=== PATIENT | male | born 1995 | race Asian ===

== ENCOUNTER → 2016-12-05 | Outpatient (CLI) | payer OTHER ==
[~2016-12-05] MED LIST: GADAVIST IV PRN; IBUP-1050 PO
--- NOTE | 2016-12-05 17:56 | DIAGNOSTIC IMAGING REPORT ---
MRI OF THE BRAIN WITHOUT AND WITH IV CONTRAST CLINICAL HISTORY: Headache and blurry vision COMPARISON STUDY: Noncontrast head CT dated 11/11/2016 TECHNIQUE: MRI of the brain was performed from the vertex to the skull base utilizing various T1 and T2 weighted sequences. Following the IV administration of 8 mL of Gadavist contrast, additional enhanced images were obtained. FINDINGS: Sagittal T1, axial diffusion, proton density and T2 weighted axial, coronal FLAIR, and pre and post axial T1-weighted images were acquired. These were supplemented with post gadolinium coronal T1 weighted images. No intra or extra-axial mass lesions are visualized. Axial diffusion-weighted images reveal no evidence of acute or subacute infarction. There is no evidence of ventricular dilatation. Proton density T2-weighted and FLAIR images reveal no significant intraparenchymal signal abnormalities. There are no abnormal flow voids. There is no evidence of pathologic enhancement. IMPRESSION: Normal study. Electronically signed by: Nabil Lennon M.D. 12/05/2016 5:55 PM Dictated Date/Time: 12/05/2016 5:53 PM
== END | disposition home or self-care (01) ==
LOC: C.MRI 16:53
PROVIDERS: ATTEND Psychiatry & Neurology Neurology
DX: H53.8 Other visual disturbances (principal); R51 Headache

== ENCOUNTER 2017-07-12 19:53 | Emergency (ER) | payer OTHER ==
[~2017-07-12] VITALS: Ht 165.1 cm; Wt 80.6 kg
[~2017-07-12 19:53] MED LIST changes: -GADAVIST IV PRN
[2017-07-12 19:56] VITALS: TEMP 36.8; Ht 165.1 cm; Wt 80.6 kg
[2017-07-12] MEDS ORDERED: LIDOCAINE 4% W/AFRIN NASAL SOLN 4ML EXT STA (20:16)
--- NOTE | 2017-07-12 21:23 | EMERGENCY ROOM VISIT NOTE ---
History Report prepared by Josselineibaurelia: Sheri Walls Under the Supervision of: Dr. Dell Linda M.D. First contact with patient: 20:03 Chief Complaint: FOOD BOLUS Stated Complaint: FOOD STUCK IN THROAT History of Present Illness The patient is a 21 year old male who presents to the Emergency Room with complaints of a food bolus. He reports he was eating rice and potatoes with cilantro this evening and now feels like something small is stuck in his throat , like a piece of cilantro. He rates his discomfort as a 6/10 in severity. Afterwards, he drank a bottle of water, but states it provided no relief. He is still able to swallow normally. The patient denies any itching or tightness in his throat. Pt also denies LOC, headache, fevers, chills, diaphoresis, visual changes, neck pain, chest pain, breathing difficulties, nausea, vomiting, abdominal pain, numbness, weakness, lymphadenopathy, rash, or other complaints. 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 A total of 6 systems were reviewed and were otherwise negative. Past Medical & Surgical Medical Problems: (1) No pertinent past medical history Family History Patient reports no known family medical history. 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 Oropharynx unremarkable. EYES: Normal conjunctiva. Sclera non-icteric. NECK: Supple. No nuchal rigidity. FROM. No JVD. RESPIRATORY: Clear to auscultation. CARDIAC: Regular rate, normal rhythm. Extremities warm and well perfused. Pulses equal. MUSCULOSKELETAL: Chest examination reveals no tenderness. The back is symmetrical on inspection without obvious abnormality. There is no CVA tenderness to palpation. No joint edema. NEURO: Normal sensorium. No sensory or motor deficits noted. SKIN: No rash or jaundice noted. Medical Decision & Procedures Procedure Nasopharyngoscopy: Risks and benefits were explained with the usual customary discussion. The patient's right naris was anesthetized with topical lidocaine and Afrin. The OIL AND G[employer] LEASE [employer]MPER scope was inserted in the standard fashion and the nasopharynx and vallecula were without difficulty. Epiglottis normal. No edema noted. Mucosa unremarkable. There is a piece of that stool matter on the right side of the posterior oropharynx from the tongue extending inferiorly to the opening of the esophagus. This is not visible through the mouth. The OIL [employer] G[employer]ER scope was used to maneuver the distal matter medially and after several attempts the patient was able to clear this with swallowing. No complications. Patient tolerated the procedure well. ED Course 2011: The patient was evaluated in room B2. A complete history and physical exam was performed. 2016: Lidocaine 4 ml EXT. 2135: I reevaluated the patient. He is feeling much better. I discussed his discharge instructions and he verbalized complete understanding and agreement. Medical Decision Patient was evaluated. Differential includes foreign body, globus sensation, edema, as well as others. He noted a foreign body sensation and believes he has a piece of cilantro stuck in his oropharynx. The patient had an OIL [employer] G[employer] LE[employer]ER scope performed and this did reveal the vegetable matter. This was removed as noted above. The patient was observed. He did very well. He had no stridor or airway edema. He was swallowing normally. By the evaluation outlined above other emergent etiologies such as those listed in the differential, as well as others, were deemed relatively unlikely. The patient was educated about the findings as listed above. All questions were answered and the patient was pleased with the treatment. Return instructions were outlined and the patient was discharged in stable condition. The patient was referred to his PCP for follow-up for a recheck of the current condition. Medication Reconcilliation Current Medication List: was personally reviewed by me Blood Pressure Screening Patient's blood pressure: Normal blood pressure Blood pressure disposition: Did not require urgent referral Impression Primary Impression: Foreign body in nasopharynx Scribe Attestation The scribe's documentation has been prepared under my direction and personally reviewed by me in its entirety. I confirm that the note above accurately reflects all work, treatment, procedures, and medical decision making performed by me. Departure Information Dispostion Home / Self-Care Prescriptions No Active Prescriptions or Reported Meds Referrals No Doctor, Assigned (PCP) Patient Instructions My [facility] Additional Instructions Rest. Drink plenty of fluids. Follow-up with [facility] next week as needed. Return to the emergency room for any severe throat pain, difficulty breathing, difficulty swallowing, vomiting or as needed.
[2017-07-12 21:41] VITALS: BP 121/79; PULSE 74; O2SAT 97
== END 2017-07-12 21:43 | disposition home or self-care (01) ==
LOC: C.EDB 19:55
DX: T17.208A Unspecified foreign body in pharynx causing other injury, initial encounter (principal); X58.XXXA Exposure to other specified factors, initial encounter

== ENCOUNTER 2018-01-15 20:05 | Emergency (ER) | payer OTHER ==
[~2018-01-15] VITALS: Ht 165.1 cm; Wt 81.7 kg
[2018-01-15 20:07] VITALS: Ht 165.1 cm; Wt 81.7 kg
[2018-01-15] MEDS ORDERED: ACETAMINOPHEN 500 MG TAB PO STA (20:17)
[2018-01-15] MEDS ORDERED: SODIUM CHLORIDE 0.9% 1000ML 1,000 ML IV STA (20:17)
[2018-01-15] MEDS ORDERED: SODIUM CHLORIDE 0.9% 1000ML 1,000 ML IV SCH (20:30)
[2018-01-15 20:54] LABS: BASO % 0.2 %; BASO ABS # 0.02 K/uL (0-0.2); EOS % 0.4 %; EOS ABS # 0.03 K/uL (0-0.5); HEMATOCRIT 40.1 % (42-52); HEMOGLOBIN 13.8 g/dL (14.0-18.0); IG# 0.01 K/uL (0.00-0.02); LYMPH % 16.9 %; MEAN CELL VOLUME 83.2 fL (80-100); MEAN CORPUSCULAR HEMOGLOBIN 28.6 pg (25-34); MEAN CORPUSCULAR HGB CONC 34.4 g/dl (32-36); MEAN PLATELET VOLUME 10.4 fL (7.4-10.4); MONO % 7.9 %; MONO ABS # 0.65 K/uL (0.11-0.59); NEUT % 74.5 %; NEUT ABS # 6.17 K/uL (1.4-6.5); PLATELET COUNT 163 K/uL (130-400); RED CELL DISTRIBUTION WIDTH CV 12.6 % (11.5-14.5); RED CELL DISTRIBUTION WIDTH SD 38.1 fL (36.4-46.3); WHITE BLOOD COUNT 8.28 K/uL (4.8-10.8)
--- NOTE | 2018-01-15 20:58 | EMERGENCY ROOM VISIT NOTE ---
History First contact with patient: 20:12 Chief Complaint: COUGH Stated Complaint: COUGH,FEVER,BODYACHES,CONGESTION Nursing Triage Summary: pt reports cough , congestion and fever X 5 days + NV started today last dose Ibuprofen at 1830 History of Present Illness The patient is a 22 year old male who presents to the Emergency Room with complaints of cough and fevers. His main symptoms at this time are nasal congestion and sinus pressure. Reports some pressure sensation on both sides of his ears. Patient also notes that he has some sore throat on the left side. He is having some discomfort with swallowing. States he has had some nasal discharge, with slight intermittent bleeding. He has also been coughing. Most of the time it is dry. Sometimes he has some small amounts of yellow sputum mixed with blood but he thinks that this probably coming from the nose. He denies having shortness of breath or wheezing. He does feel slight amount of chest pressure. He states that he feels some palpitations but also states that he is little bit nervous being here in the emergency room. Patient's appetite has been down as is been in p.o. intake. His girlfriend states that he has not had much to eat all day today. Today states that he is nauseous but thinks he be able to keep fluids down. Patient states that his symptoms started 4 days ago. His fevers have been continuously 100-101. He has been trying Tylenol Motrin which intermittently helps. Patient states that he has not any other medical conditions. Is never had any surgeries. He does not take any regular medications. He is a lifelong non- smoker. The patient did travel to [facility] 4 months ago but has not had no recent travel since. Review of Systems A 10 point review of systems was negative unless stated above. Past Medical/Surgical History Medical Problems: (1) No pertinent past medical history Family History Patient reports no known family medical history. 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 Current/Historical Medications Scheduled Amoxicillin (Amoxicillin), 1 TAB PO BID Scheduled PRN Acetaminophen (Tylenol), 1,000 MG PO Q6 PRN for Pain Dextromethorphan-Phenylephrine (Theraflu Severe Cold & Co), 1 TAB BID PRN for cold symptoms Ibuprofen (Advil), 400-600 MG PO Q6H PRN for Pain or Fever Allergies NKA Physical Exam Vital Signs Date Time Temp Pulse Resp B/P (MAP) Pulse Ox O2 Delivery O2 Flow Rate FiO2 01/15/18 21:41 37.6 102 18 120/71 99 Room Air 01/15/18 20:41 115 01/15/18 20:32 Room Air 01/15/18 20:07 38.0 133 18 139/82 97 Room Air Pain Rating (0-10): 0 Physical Exam Constitutional: Vital signs as above were reviewed. General Exam: Diaphoretic, no acute distress Eyes: Pupils equal, round, and reactive to light. Extraocular muscles are intact. No proptosis. No photophobia. ENT: Mucous membranes are moist. Oropharynx is erythematous, no petechiae Nasal turbinates are boggy and erythematous There is no evidence of cervical lymphadenopathy Both tympanic membranes are clear with good light reflex. Cardiovascular: Heart with a regular rate and rhythm. Pulses are palpable and symmetric in all 4 extremities. No pedal edema appreciated. Respiratory: Lungs clear to auscultation bilaterally. No wheezes, rales, or rhonchi appreciated. No accessory muscle use. No retractions. No increased work of breathing. GI: Abdomen soft, nontender, nondistended. Normal active bowel sounds. No abdominal hernias appreciated. No rebound. No guarding. Musculoskeletal: No midline cervical or vertebral tenderness. No gross deformities. No bony tenderness. No calf swelling or tenderness. Integumentary: Warm, dry, no rashes appreciated. Neurological: Patient awake, alert, and oriented x 3. Cranial nerves two through 12 grossly intact. Lymph: No cervical lymphadenopathy appreciated. No posterior chain lymphadenopathy. Medical Decision & Procedures ER Provider Diagnostic Interpretation: CHEST ONE VIEW PORTABLE HISTORY: 22 years-old Male Evaluate Fever/Sepsis acute fever with sepsis COMPARISON: None available TECHNIQUE: Portable AP view of the chest FINDINGS: Cardiomediastinal and hilar silhouettes are within normal limits. No pneumothorax, pleural effusion, focal airspace consolidation or overt pulmonary edema. The bones of the chest appear grossly intact. IMPRESSION: No acute process. The above report was generated using voice recognition software. It may contain grammatical, syntax or spelling errors. Electronically signed by: Fredi De La Rosa M.D. 01/15/2018 9:00 PM Dictated Date/Time: 01/15/2018 8:59 PM The status of this report is Signed. Draft = Not yet reviewed or approved by Radiologist. Signed = Reviewed and approved by Radiologist. Laboratory Results 01/15/18 20:40 Red Blood Count 4.82, Mean Corpuscular Volume 83.2, Mean Corpuscular Hemoglobin 28.6, Mean Corpuscular Hemoglobin Concent 34.4, Mean Platelet Volume 10.4, Neutrophils (%) (Auto) 74.5, Lymphocytes (%) (Auto) 16.9, Monocytes (%) (Auto) 7.9, Eosinophils (%) (Auto) 0.4, Basophils (%) (Auto) 0.2, Neutrophils # (Auto) 6.17, Lymphocytes # (Auto) 1.40, Monocytes # (Auto) 0.65, Eosinophils # (Auto) 0.03, Basophils # (Auto) 0.02 01/15/18 20:40 Test 01/15/18 20:30 01/15/18 20:40 01/15/18 21:37 Influenza Type A Antigen Neg for Influ A (NEG) Influenza Type B Antigen Neg for Influ B (NEG) White Blood Count 8.28 K/uL (4.8-10.8) Red Blood Count 4.82 M/uL (4.7-6.1) Hemoglobin 13.8 g/dL (14.0-18.0) Hematocrit 40.1 % (42-52) Mean Corpuscular Volume 83.2 fL (80-100) Mean Corpuscular Hemoglobin 28.6 pg (25-34) Mean Corpuscular Hemoglobin Concent 34.4 g/dl (32-36) Platelet Count 163 K/uL (130-400) Mean Platelet Volume 10.4 fL (7.4-10.4) Neutrophils (%) (Auto) 74.5 % Lymphocytes (%) (Auto) 16.9 % Monocytes (%) (Auto) 7.9 % Eosinophils (%) (Auto) 0.4 % Basophils (%) (Auto) 0.2 % Neutrophils # (Auto) 6.17 K/uL (1.4-6.5) Lymphocytes # (Auto) 1.40 K/uL (1.2-3.4) Monocytes # (Auto) 0.65 K/uL (0.11-0.59) Eosinophils # (Auto) 0.03 K/uL (0-0.5) Basophils # (Auto) 0.02 K/uL (0-0.2) RDW Standard Deviation 38.1 fL (36.4-46.3) RDW Coefficient of Variation 12.6 % (11.5-14.5) Immature Granulocyte % (Auto) 0.1 % Immature Granulocyte # (Auto) 0.01 K/uL (0.00-0.02) Anion Gap 7.0 mmol/L (3-11) Est Creatinine Clear Calc Drug Dose 100.9 ml/min Estimated GFR () 106.0 Estimated GFR (Non- 91.4 BUN/Creatinine Ratio 7.4 (10-20) Calcium Level 8.3 mg/dl (8.5-10.1) Total Creatine Kinase 133 U/L (39-308) Creatine Kinase MB 0.6 ng/ml (0.5-3.6) Creatine Kinase MB Ratio 0.5 (0-3.0) Troponin I < 0.015 ng/ml (0-0.045) Lipase 139 U/L (73-393) Medications Administered Medications (Trade) Dose Ordered Sig/Rubi Route Start Time Stop Time Status Last Admin Dose Admin Sodium Chloride 1,000 ml @ 999 mls/hr Q1H1M STAT IV 01/15/18 20:17 01/15/18 21:17 DC 01/15/18 20:37 999 MLS/HR Acetaminophen (Tylenol Tab) 1,000 mg NOW STAT PO 01/15/18 20:17 01/15/18 20:21 DC 01/15/18 20:37 1,000 MG Potassium Chloride (Klor-Con M10) 40 meq STK-MED ONCE .ROUTE 01/15/18 21:27 01/15/18 21:28 DC 01/15/18 21:32 40 MEQ ED Course 20:30 - The patient was seen and assessed. A full history and physical exam was performed 20:45 - The case was discussed with Dr. Washington, who will see the patients separately 21:30 - Chest x-ray reviewed. Labs reviewed K3.1: 40 any cues of potassium chloride p.o. given to the patient 21:45 - Results were discussed with the patient; recommend treatment for sinusitis at this time and discharged home with close PCP follow-up The patient is in agreement with this plan 21:50 - Discharge completed. Patient was discharged in stable condition Medical Decision Patient presents with fever and cough for the past 4 days. He notes that he has been febrile. Differential includes pharyngitis, influenza, sinusitis, mononucleosis, viral URI with cough. CBC was obtained which was normal. The patient was febrile on arrival. He was given Tylenol. Is also tachycardic on arrival which responded well to IV fluids. Patient states he is feeling much better after IV fluids. Chest x-ray done to rule out a pneumonia which was fortunately normal. An EKG was done showing a sinus tachycardia. A troponin was checked to rule out the possibility of pericarditis or myocarditis. Troponin was also normal. There are no acute EKG changes. Reviewing the history the patient's symptoms seem predominantly sinus related including congestion and discharge. He denies any classic features of mononucleosis including palatal petechiae or posterior chain cervical lymphadenopathy. Furthermore given the duration of his symptoms sound likely a Monospot would be positive at this point. Given the localization of the signs and symptoms to the sinuses are recommendation at this point is that I be safe for him to start a course of amoxicillin with close follow-up with his PCP. I did discuss this with him and the potential risks of amoxicillin-based rash in patients with mononucleosis. But at this point think that this is very unlikely and feel that he is safe to take this antibiotic. He has been advised to see his PCP or come back to the emergency room if he notices a rash after starting amoxicillin. Instructions were given to the patient prior to discharge. He is instructed to follow-up closely with his primary care provider [facility]. Patient is in agreement with the plan and was discharged in stable condition. Head Trauma GCS Score: 15 Medication Reconcilliation Current Medication List: was personally reviewed by oh Blood Pressure Screening Patient's blood pressure: Normal blood pressure Impression Primary Impression: Sinusitis Additional Impression: Upper respiratory infection Ruled Out: Pneumonia Departure Information Dispostion Home / Self-Care Condition GOOD Prescriptions Amoxicillin (Amoxicillin) 875 Mg Tab 1 TAB PO BID for 10 Days, #20 TAB Prov: Benito Gautam MD 01/15/18 Referrals [facility] (PCP) Patient Instructions ED Upper Resp Infec Abx Tx, My [facility] Additional Instructions You came to the emergency room because of ongoing fevers and cough. We did a chest x-ray which was negative for pneumonia. We did some basic lab work on you. You did not have any findings suggestive of an overwhelming infection. Your sodium levels and potassium levels were slightly low. We gave you IV fluids, which should correct the sodium levels. In addition before you left the emergency room we gave you an oral dose of supplemental potassium. Given that you have sinus marked congestion and drainage, you most likely have a sinusitis. We will treat you for this with antibiotics for 10 days. In addition we will send you home with a nasal steroid. Please take 1-2 puffs in each nostril twice a day for the next 7-10 days. This should help with nasal congestion and drainage. In addition to this please treat fevers with Tylenol or Motrin. Most importantly, you need to stay well hydrated. If you are having difficulty with solid foods, you can try a BRAT diet (bananas , rice, applesauce, toast) and gradually advance her you improve. If your symptoms fail to improve, acutely worsen, please seek medical attention immediately by either calling your primary care provider or going to your nearest emergency department. Otherwise, please see your primary care provider within 1 week to ensure that your symptoms continue to improve. It was a pleasure to be involved in your care and we wish you all the best. Problem Qualifiers
--- NOTE | 2018-01-15 21:01 | DIAGNOSTIC IMAGING REPORT ---
CHEST ONE VIEW PORTABLE HISTORY: 22 years-old Male Evaluate Fever/Sepsis acute fever with sepsis COMPARISON: None available TECHNIQUE: Portable AP view of the chest FINDINGS: Cardiomediastinal and hilar silhouettes are within normal limits. No pneumothorax, pleural effusion, focal airspace consolidation or overt pulmonary edema. The bones of the chest appear grossly intact. IMPRESSION: No acute process. The above report was generated using voice recognition software. It may contain grammatical, syntax or spelling errors. Electronically signed by: Fredi De La Rosa M.D. 01/15/2018 9:00 PM Dictated Date/Time: 01/15/2018 8:59 PM
[2018-01-15 21:07] LABS: INFLUENZA B ANTIGEN Neg for Influ B (NEG)
[2018-01-15 21:14] LABS: BLOOD UREA NITROGEN 8 mg/dl (7-18); CALCIUM 8.3 mg/dl (8.5-10.1); CARBON DIOXIDE 25 mmol/L (21-32); CREATININE 1.14 mg/dl (0.60-1.40); GLUCOSE 141 mg/dl (70-99); LIPASE 139 U/L (73-393); POTASSIUM 3.2 mmol/L (3.5-5.1); SODIUM 133 mmol/L (136-145)
[2018-01-15] MEDS ORDERED: POTASSIUM CHLORIDE 20 MEQ TABCR PO STA (21:17)
[2018-01-15 21:19] LABS: CKMB 0.6 ng/ml (0.5-3.6)
[2018-01-15] MEDS ORDERED: POTASSIUM CHLORIDE 10 MEQ TABCR ONE ×2 (21:27→22:00)
--- NOTE | 2018-01-15 21:33 | EMERGENCY ROOM VISIT NOTE ---
History Report prepared by Sarthak: Estiven Carcamo Under the Supervision of: Dr. Sukhjinder Washington D.O. First contact with patient: 20:12 Chief Complaint: COUGH Stated Complaint: COUGH,FEVER,BODYACHES,CONGESTION Nursing Triage Summary: pt reports cough , congestion and fever X 5 days + NV started today last dose Ibuprofen at 1830 History of Present Illness The patient is a 22 year old male who presents to the Emergency Room with complaints of a persistent cough and fever that began on Saturday, 4 days ago. The patient states that he also has pain on the left side of his throat that is worsened with swallowing. His fever has been between 100-101 degrees F consistently for the past 4 days. His cough is producing a clear mucous, which is intermittently yellow colored. There is no shortness of breath, but there is some chest tightness. He has been taking Tylenol and Motrin without relief. The patient has already visited with both [facility] and [facility] over the past 4 days and had negative Strep/Influenza testing at both visits. Source of History: patient Onset: 4 days ago. Position: chest Symptom Intensity: 100/101 degree fever Quality: other (Cough/fever) Timing: other (Persistent) Associated Symptoms: No SOB Review of Systems See HPI for pertinent positives & negatives. A total of 10 systems reviewed and were otherwise negative. Past Medical & Surgical Medical Problems: (1) No pertinent past medical history Family History Patient reports no known family medical history. 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 Current/Historical Medications Scheduled Amoxicillin (Amoxicillin), 1 TAB PO BID Scheduled PRN Acetaminophen (Tylenol), 1,000 MG PO Q6 PRN for Pain Dextromethorphan-Phenylephrine (Theraflu Severe Cold & Co), 1 TAB BID PRN for cold symptoms Ibuprofen (Advil), 400-600 MG PO Q6H PRN for Pain or Fever Allergies Coded Allergies: No Known Allergies (Unverified , 07/12/17) Physical Exam Vital Signs Date Time Temp Pulse Resp B/P (MAP) Pulse Ox O2 Delivery O2 Flow Rate FiO2 01/15/18 21:41 37.6 102 18 120/71 99 Room Air 01/15/18 20:41 115 01/15/18 20:32 Room Air 01/15/18 20:07 38.0 133 18 139/82 97 Room Air Physical Exam CONSTITUTIONAL/VITAL SIGNS: Reviewed / noted above. GENERAL: Non-toxic in appearance. INTEGUMENTARY: Warm, dry, and [place]. HEAD: Normocephalic. EYES: without scleral icterus or trauma. ENT/OROPHARYNX: clear and moist. Mild posterior oropharyngeal erythema. No exudate. LYMPHADENOPATHY/NECK: Is supple without lymphadenopathy or meningismus. RESPIRATORY: Lungs clear and equal. CARDIOVASCULAR: Regular rate and rhythm. GI/ABDOMEN: Soft and nontender. No organomegaly or pulsatile mass. No rebound or guarding. Normal bowel sounds. EXTREMITIES: Warm and well perfused. BACK: No CVA tenderness. NEUROLOGICAL: Intact without focal deficits. PSYCHIATRIC: normal affect. MUSCULOSKELETAL: Normally developed with good muscle tone. TRIAGE NURSING DOCUMENTATION REVIEWED. Medical Decision & Procedures ER Provider Diagnostic Interpretation: Radiology results as stated below per my review and radiologist interpretation: CHEST ONE VIEW PORTABLE HISTORY: 22 years-old Male Evaluate Fever/Sepsis acute fever with sepsis COMPARISON: None available TECHNIQUE: Portable AP view of the chest FINDINGS: Cardiomediastinal and hilar silhouettes are within normal limits. No pneumothorax, pleural effusion, focal airspace consolidation or overt pulmonary edema. The bones of the chest appear grossly intact. IMPRESSION: No acute process. The above report was generated using voice recognition software. It may contain grammatical, syntax or spelling errors. Electronically signed by: Fredi De La Rosa M.D. 01/15/2018 9:00 PM Dictated Date/Time: 01/15/2018 8:59 PM Laboratory Results 01/15/18 20:40 Red Blood Count 4.82, Mean Corpuscular Volume 83.2, Mean Corpuscular Hemoglobin 28.6, Mean Corpuscular Hemoglobin Concent 34.4, Mean Platelet Volume 10.4, Neutrophils (%) (Auto) 74.5, Lymphocytes (%) (Auto) 16.9, Monocytes (%) (Auto) 7.9, Eosinophils (%) (Auto) 0.4, Basophils (%) (Auto) 0.2, Neutrophils # (Auto) 6.17, Lymphocytes # (Auto) 1.40, Monocytes # (Auto) 0.65, Eosinophils # (Auto) 0.03, Basophils # (Auto) 0.02 01/15/18 20:40 Test 01/15/18 20:30 01/15/18 20:40 01/15/18 21:37 Influenza Type A Antigen Neg for Influ A (NEG) Influenza Type B Antigen Neg for Influ B (NEG) White Blood Count 8.28 K/uL (4.8-10.8) Red Blood Count 4.82 M/uL (4.7-6.1) Hemoglobin 13.8 g/dL (14.0-18.0) Hematocrit 40.1 % (42-52) Mean Corpuscular Volume 83.2 fL (80-100) Mean Corpuscular Hemoglobin 28.6 pg (25-34) Mean Corpuscular Hemoglobin Concent 34.4 g/dl (32-36) Platelet Count 163 K/uL (130-400) Mean Platelet Volume 10.4 fL (7.4-10.4) Neutrophils (%) (Auto) 74.5 % Lymphocytes (%) (Auto) 16.9 % Monocytes (%) (Auto) 7.9 % Eosinophils (%) (Auto) 0.4 % Basophils (%) (Auto) 0.2 % Neutrophils # (Auto) 6.17 K/uL (1.4-6.5) Lymphocytes # (Auto) 1.40 K/uL (1.2-3.4) Monocytes # (Auto) 0.65 K/uL (0.11-0.59) Eosinophils # (Auto) 0.03 K/uL (0-0.5) Basophils # (Auto) 0.02 K/uL (0-0.2) RDW Standard Deviation 38.1 fL (36.4-46.3) RDW Coefficient of Variation 12.6 % (11.5-14.5) Immature Granulocyte % (Auto) 0.1 % Immature Granulocyte # (Auto) 0.01 K/uL (0.00-0.02) Anion Gap 7.0 mmol/L (3-11) Est Creatinine Clear Calc Drug Dose 100.9 ml/min Estimated GFR () 106.0 Estimated GFR (Non- 91.4 BUN/Creatinine Ratio 7.4 (10-20) Calcium Level 8.3 mg/dl (8.5-10.1) Total Creatine Kinase 133 U/L (39-308) Creatine Kinase MB 0.6 ng/ml (0.5-3.6) Creatine Kinase MB Ratio 0.5 (0-3.0) Troponin I < 0.015 ng/ml (0-0.045) Lipase 139 U/L (73-393) Laboratory results as stated above per my review. Medications Administered Medications (Trade) Dose Ordered Sig/Rubi Route Start Time Stop Time Status Last Admin Dose Admin Sodium Chloride 1,000 ml @ 999 mls/hr Q1H1M STAT IV 01/15/18 20:17 01/15/18 21:17 DC 01/15/18 20:37 999 MLS/HR Acetaminophen (Tylenol Tab) 1,000 mg NOW STAT PO 01/15/18 20:17 01/15/18 20:21 DC 01/15/18 20:37 1,000 MG Potassium Chloride (Klor-Con M10) 40 meq STK-MED ONCE .ROUTE 01/15/18 21:27 01/15/18 21:28 DC 01/15/18 21:32 40 MEQ ECG Per My Interpretation Indication: chest pain (chest tightness) Rate (beats per minute): 122 Rhythm: sinus tachycardia Findings: other (No JONES/STD, No PVCs) ED Course 2001: Previous medical records were reviewed. The patient was evaluated in room C9. A complete history and physical examination was performed. 2017: Ordered Tylenol 1000 mg PO, Sodium Chloride 1000 mL @ 999 mL/hr Iv. 2029: Ordered Sodium Chloride 1000 mL @ 999 mL/hr IV. 2116: Ordered Potassium Chloride 40 meq. 4: On reevaluation, the patient is resting in bed. I discussed the results and findings with the patient. He verbalized agreement of the treatment plan. The patient was discharged home. Medical Decision Differential includes viral illness, influenza, streptococcal pharyngitis, meningitis, pneumonia, sinusitis, UTI, pyelonephritis, otitis media. The patient was seen with the resident. Details listed above. The patient reports cough and congestion for the past 5 days. He had a little nausea and vomiting today. Temperature of 38.0 and heart rate of 133 on his arrival. The patient is in no distress. He does have posterior oropharyngeal erythema. A chest x-ray was negative for acute disease. CBC is normal, complete metabolic panel is unremarkable, troponin was negative, lipase was negative and a flu swab was negative. The patient was told the results of the test. He was treated with IV fluids and oral Tylenol. He was given oral potassium. The patient was told the results and felt to be stable for discharge. Impression Primary Impression: Upper respiratory infection Additional Impression: Sinusitis Scribe Attestation The scribe's documentation has been prepared under my direction and personally reviewed by me in its entirety. I confirm that the note above accurately reflects all work, treatment, procedures, and medical decision making performed by me. Departure Information Dispostion Home / Self-Care Prescriptions Amoxicillin (Amoxicillin) 875 Mg Tab 1 TAB PO BID for 10 Days, #20 TAB Prov: Benito Gautam MD 01/15/18 Referrals [facility] (PCP) Patient Instructions My [facility] Problem Qualifiers
[2018-01-15] MEDS ORDERED: DEXTTAB (21:36)
[2018-01-15] MEDS ORDERED: IBUP-1050 PO (21:36)
[2018-01-15] MEDS ORDERED: ACET-1256 PO (21:36)
[2018-01-15] MEDS ORDERED: AMX875 PO (21:39)
[2018-01-15 21:41] VITALS: TEMP 37.6
[2018-01-15] MEDS ORDERED: AMOXICILLIN 250 MG CAP PO STA (21:43)
[2018-01-15 22:13] VITALS: BP 121/76; PULSE 100; O2SAT 95
[2018-01-16] MEDS ORDERED: FLUTICASONE PROPIONATE NA SPR 16 GM BTL SCH (09:00)
== END 2018-01-15 22:13 | disposition home or self-care (01) ==
LOC: C.EDB 20:06 → C.EDC 22:13
DX: J01.90 Acute sinusitis, unspecified (principal); J06.9 Acute upper respiratory infection, unspecified